=== PATIENT | female | born 1995 | race Caucasian/White ===

== ENCOUNTER 2016-10-04 03:04 | Emergency (ER) | payer SELFPAY ==
[~2016-10-04] VITALS: Ht 162.6 cm; Wt 65.0 kg
[2016-10-04 06:31] VITALS: BP 95/60
== END 2016-10-04 07:16 | disposition home or self-care (01) ==
LOC: ER 03:04
DX: F12.10 Cannabis abuse, uncomplicated (principal); F41.9 Anxiety disorder, unspecified; F32.9 Major depressive disorder, single episode, unspecified
CPT/HCPCS: 99283

== ENCOUNTER 2020-06-13 22:57 | Emergency (ER) | payer MEDICAID ==
[~2020-06-13] VITALS: Ht 170.2 cm; Wt 84.0 kg
[2020-06-13] MEDS ORDERED: SODIUM CHLORIDE 0.9% 1,000 ML IV ONE (23:15)
[2020-06-13] MEDS ORDERED: HALOPERIDOL LACTATE 5MG/ML VIAL IM STA (23:15)
[2020-06-13 23:40] LABS: BASOPHILS % 0.9 % (0.0-2.0); EOSINOPHILS % 2.3 % (0.0-5.0); HEMATOCRIT. 41.3 % (36.0-48.0); HEMOGLOBIN. 13.6 g/dL (12.0-16.0); LYMPHOCYTES % 22.7 % (20.0-50.0); MEAN CORPUSCULAR HEMOGLOBIN 29.8 pg (28.0-32.0); MEAN CORPUSCULAR VOLUME 90.6 fL (81.0-99.0); MEAN PLATELET VOLUME 7.6 fl (7.4-10.4); MONOCYTES % 5.3 % (2.0-8.0); NEUTROPHILS % 68.8 % (40.0-76.0); PLATELET 288 x1000/uL (130-400); RED BLOOD CELL COUNT 4.56 mill/uL (4.2-5.4); RED CELL DISTRIBUTION WIDTH 14.2 % (11.6-14.6)
[2020-06-13 23:47] LABS: CHLORIDE 114 mEq/L (98-107)
[2020-06-13 23:49] LABS: HCG SCREEN NEGATIVE
[2020-06-13 23:51] LABS: ETHANOL BLOOD 278 mg/dL
[2020-06-14 00:56] LABS: CLARITY URINE CLEAR (CLEAR); COLOR URINE YELLOW (YELLOW); KETONES URINE TRACE (NEGATIVE); LEUKOCYTE ESTERASE URINE NEGATIVE (NEGATIVE); NITRITE URINE NEGATIVE (NEGATIVE); OCCULT BLOOD URINE NEGATIVE (NEGATIVE); PROTEIN URINE TRACE (NEGATIVE); SPECIFIC GRAVITY URINE 1.026 (1.005-1.030)
[2020-06-14 01:08] LABS: *AMPHETAMINES SCREEN URINE NEGATIVE (NEGATIVE); *BARBITURATES SCREEN URINE NEGATIVE (NEGATIVE)
[2020-06-14 01:09] LABS: *BENZODIAZEPINES SCREEN URINE NEGATIVE (NEGATIVE); *COCAINE SCREEN URINE NEGATIVE (NEGATIVE); CANNABINOID URINE SCREEN NEGATIVE (NEGATIVE); METHADONE URINE SCREEN NEGATIVE (NEGATIVE); OPIATES URINE SCREEN NEGATIVE (NEGATIVE); PHENCYCLIDINE URINE SCREEN NEGATIVE (NEGATIVE)
[2020-06-14 05:49] VITALS: BP 106/69
== END 2020-06-14 06:22 ==
LOC: ER 22:57
DX: S02.2XXA Fracture of nasal bones, initial encounter for closed fracture (principal); S09.90XA Unspecified injury of head, initial encounter; F10.129 Alcohol abuse with intoxication, unspecified; Y90.8 Blood alcohol level of 240 mg/100 ml or more; F12.10 Cannabis abuse, uncomplicated; W01.0XXA Fall on same level from slipping, tripping and stumbling without subsequent striking against object, initial encounter; Y93.89 Activity, other specified; Y92.018 Other place in single-family (private) house as the place of occurrence of the external cause
CPT/HCPCS: 36415; 70450; 80053; 80305; 80320; 81003; 84703; 85025; 96360; 96372; 99285; J1630; J7030; Z7610; G0480

== ENCOUNTER 2024-03-02 10:18 | Emergency (ER) | payer MEDICAID, OTHER ==
[~2024-03-02] VITALS: Ht 162.6 cm; Wt 125.0 kg
[2024-03-02 10:19] VITALS: BP 148/90
[2024-03-02 11:35] VITALS: TEMP 98.3
[2024-03-02] MEDS: METHYLPREDNISOLONE SOD SUCC 125MG/2ML (ACT-O-VIAL) IM STA (11:35)
[2024-03-02] MEDS: ACETAMINOPHEN 325MG TABLET PO STA (11:35)
[2024-03-02 11:56] VITALS: PULSE 114; RESP 16; O2SAT 93
[2024-03-02] MEDS: ALBUTEROL (0.083%) 2.5MG/3ML NEB HHN STA (11:56)
[2024-03-02] MEDS: IPRATROPIUM BROMIDE (0.02%) 0.5MG/2.5ML NEB HHN STA (11:56)
[2024-03-02] MEDS ORDERED: ALBU18HF2 IH (12:21)
[2024-03-02] MEDS ORDERED: P50 MT (12:21)
[2024-03-02] MEDS ORDERED: DEXTL MT (12:21)
== END 2024-03-02 13:24 | disposition home or self-care (01) ==
LOC: ER 10:18
DX: J45.909 Unspecified asthma, uncomplicated (principal); J06.9 Acute upper respiratory infection, unspecified
CPT/HCPCS: 94640; 96372; 99283; J2919; Z7610 ×3

== ENCOUNTER 2024-09-29 16:46 | Emergency (ER) | payer MEDICAID, OTHER ==
[~2024-09-29] VITALS: Ht 162.6 cm; Wt 70.0 kg
[~2024-09-29 16:46] MED LIST: ALBU18HF2 IH; DEXTL MT; P50 MT
[2024-09-29 16:52] VITALS: O2SAT 100
[2024-09-29] MEDS: ZIPRASIDONE MESYLATE 20MG/VIAL IM STA (18:25)
[2024-09-29 19:40] LABS: BASOPHILS % 0.7 % (0.0-2.0); EOSINOPHILS % 0.6 % (0.0-5.0); HEMATOCRIT. 36.3 % (36.0-48.0); HEMOGLOBIN. 12.4 g/dL (12.0-16.0); LYMPHOCYTES % 30.5 % (20.0-50.0); MEAN PLATELET VOLUME 8.2 fl (7.4-10.4); MONOCYTES % 7.0 % (2.0-8.0); NEUTROPHILS % 61.2 % (40.0-76.0); PLATELET 256 x1000/uL (130-400); RED BLOOD CELL COUNT 4.01 mill/uL (4.2-5.4); RED CELL DISTRIBUTION WIDTH 14.1 % (11.6-14.6)
[2024-09-29 19:52] LABS: CREATININE 0.7 mg/dL (0.6-1.0); ETHANOL BLOOD < 10 mg/dL (<10); UREA NITROGEN BLOOD 11 mg/dL (9-23)
[2024-09-29 19:54] LABS: HCG SCREEN NEGATIVE
[2024-09-29] MEDS: POTASSIUM CHLORIDE 20MEQ TABLET SR PO ONE (22:15)
[2024-09-29] MEDS: POTASSIUM CHLORIDE 20MEQ TABLET SR PO SCH (22:15)
[2024-09-29 23:56] LABS: CLARITY URINE CLOUDY (CLEAR); COLOR URINE DARK YELLOW (YELLOW); GLUCOSE URINE NEGATIVE (NEGATIVE); KETONES URINE 2+ (NEGATIVE); LEUKOCYTE ESTERASE URINE 1+ (NEGATIVE); NITRITE URINE NEGATIVE (NEGATIVE); OCCULT BLOOD URINE NEGATIVE (NEGATIVE); PH URINE 5.5 (4.5-8.0); PROTEIN URINE TRACE (NEGATIVE); SPECIFIC GRAVITY URINE 1.018 (1.005-1.030); UROBILINOGEN URINE 1.0 E.U./dL (0.2-1.0)
[2024-09-30 00:09] LABS: *AMPHETAMINES SCREEN URINE PRESUMPTIVE POSITIVE (NEGATIVE); *BARBITURATES SCREEN URINE NEGATIVE (NEGATIVE); *BENZODIAZEPINES SCREEN URINE NEGATIVE (NEGATIVE); *COCAINE SCREEN URINE NEGATIVE (NEGATIVE); METHADONE URINE SCREEN NEGATIVE (NEGATIVE); OPIATES URINE SCREEN NEGATIVE (NEGATIVE); PHENCYCLIDINE URINE SCREEN NEGATIVE (NEGATIVE)
[2024-09-30 00:10] LABS: CANNABINOID URINE SCREEN PRESUMPTIVE POSITIVE (NEGATIVE); ECSTASY MDMA SCREEN URINE NEGATIVE (NEGATIVE)
[2024-09-30 00:43] LABS: SQUAMOUS EPITHELIAL CELL URINE FEW /lpf (RARE/1+)
[2024-09-30 00:45] LABS: RBC URINE 0-2 /hpf (0-2)
[2024-09-30 00:49] LABS: BACTERIA URINE 1+
[2024-09-30 14:25] VITALS: BP 120/71; PULSE 80; RESP 17; TEMP 36.8; O2SAT 100
== END 2024-09-30 14:36 | disposition home or self-care (01) ==
LOC: ER 16:46
DX: F23 Brief psychotic disorder (principal); E87.6 Hypokalemia; F19.10 Other psychoactive substance abuse, uncomplicated; J45.909 Unspecified asthma, uncomplicated; Z79.899 Other long term (current) drug therapy; Z20.822 Contact with and (suspected) exposure to COVID-19
CPT/HCPCS: 80305; 80048; 81003; 80307; 80329; 80320; 84703; 85025; 36415; 96372; 99285; 87426; J3486; Z7610 ×2; G0480